=== PATIENT | male | born 1980 | race Caucasian/White ===

== ENCOUNTER 2023-09-22 19:09 | Emergency (ER) | payer OTHER ==
[2023-09-22 19:56] VITALS: BP 143/93; PULSE 86; RESP 20; TEMP 98; BMI 27.0
== END 2023-09-22 20:12 | disposition home or self-care (01) ==
LOC: FER 19:09
DX: F41.9 Anxiety disorder, unspecified (principal); R00.2 Palpitations
CPT/HCPCS: 99282-25